=== PATIENT | female | born 1975 | race Caucasian/White ===

== ENCOUNTER 2018-01-29 11:28 | Emergency (ER) | payer OTHER ==
[2018-01-29 11:57] VITALS: BP 146/89
--- NOTE | 2018-01-29 12:28 | UC ---
Minor Trauma HPI - HPI Summary HPI Summary: Pt reports that she slipped on stair last night and fell down 13 stairs hitting chin, and left knee pain pain s/p fall. Pt has "butterflied" chin laceration and using crutch to ambulate. - History of Current Complaint Chief Complaint: UCLowerExtremity Stated Complaint: S/P FALL LEFT LEG,CHIN (YESTERDAY) Time Seen by Provider: 01/29/18 12:09 Hx Obtained From: Patient Hx Last Menstrual Period: 12/22/17 ?: No Onset/Duration: Sudden Onset, Worse Since - onset Onset Of Pain: Post Accident Severity Initially: Moderate Severity Currently: Severe Pain Intensity: 10 Mechanism Of Injury: Fall From A Standing Position Aggravating Factor(s): Movement, Weight Bearing Alleviating Factor(s): Nothing Associated Signs And Symptoms: Positive: Swelling - Risk Factors Penetrating Injury Risk Factors: Negative Compartment Syndrome Risk Factors: Pain - Allergies/Home Medications Allergies/Adverse Reactions: Allergies Allergy/AdvReac Type Severity Reaction Status Date / Time Penicillins Allergy Hives Verified 01/29/18 11:48 Home Medications: Home Medications Acetaminophen [Acetaminophen Extra Strength] 1,000 mg PO Q6H PRN 01/29/18 [ History Confirmed 01/29/18] Ibuprofen TAB* [Advil TAB*] 800 mg PO Q6H PRN 01/29/18 [History Confirmed ] PMH/Surg Hx/FS Hx/Imm Hx Previously Healthy: Yes - obese - Surgical History Surgical History: Yes Surgery Procedure, Year, and Place: TONSILS& ADNOIDS REMOVED AND TUBES IN EARS A CHILD. 2 C-SECTIONS. BILATERAL CARPAL TUNNEL. TUBAL LIGATION - Family History Known Family History: Positive: Cardiac Disease - Social History Occupation: Employed Full-time Lives: With Family Alcohol Use: Occasionally Substance Use Type: None Smoking Status (MU): Heavy Every Day Tobacco Smoker Type: Cigarettes Amount Used/How Often: 1/2- 1 ppd Length of Time of Smoking/Using Tobacco: 10 + yrs Have You Smoked in the Last Year: Yes Household Exposure Type: Cigarettes - Immunization History Most Recent Tetanus Shot: unknown Review of Systems Constitutional: Negative Skin: Bruising - chin Eyes: Negative ENT: Negative Respiratory: Negative Cardiovascular: Negative Gastrointestinal: Negative Genitourinary: Negative Motor: Decreased ROM - left knee Neurovascular: Negative Musculoskeletal: Arthralgia, Decreased ROM, Myalgia - left knee Neurological: Negative Psychological: Negative Is Patient Immunocompromised?: No All Other Systems Reviewed And Are Negative: Yes Physical Exam Triage Information Reviewed: Yes Appearance: Pain Distress, Obese Vital Signs: Initial Vital Signs Temp 97.8 F 01/29/18 11:50 Pulse 86 01/29/18 11:50 Resp 20 01/29/18 11:50 BP 146/89 01/29/18 11:50 Pulse Ox 98 01/29/18 11:50 Vital Signs Reviewed: Yes Eye Exam: Normal ENT Exam: Normal Dental Exam: Normal Neck exam: Normal Respiratory Exam: Normal Cardiovascular Exam: Normal Musculoskeletal Exam: Other Musculoskeletal: Positive: Strength Limited @ - left knee, ROM Limited @ - left knee, Other: - left knee, generalized pain unable to bend due to pain Neurological Exam: Normal Psychological Exam: Normal Skin Exam: Other - multiple laceration chin, bleeding stopped and bandage applied. Diagnostics - Radiology No standard instances Radiology Interpretation Completed By: Radiologist - IMPRESSION: OSTEOARTHRITIS. SMALL JOINT EFFUSION. NO ACUTE FINDINGS. Minor Trauma Course/Dx - Differential Dx/Diagnosis Differential Diagnosis/HQI/PQRI: Contusion(s), Fracture, Laceration(s), Sprain, Strain Provider Diagnoses: left knee sprain. chin laceration- no repair needed. Discharge - Sign-Out/Discharge Documenting (check all that apply): Patient Departure - Discharge Plan Condition: Stable Disposition: HOME Prescriptions: traMADol TAB* [Ultram*] 50 mg PO Q12H PRN #6 tab MDD 2 PRN Reason: Pain Patient Education Materials: Knee Pain (ED), R.I.C.E. Treatment (ED), Facial Laceration (ED) Referrals: Aurelio Courtney MD [Medical Doctor] - If Needed Brandee Mcknight MD [Primary Care Provider] - If Needed - Billing Disposition and Condition Condition: STABLE Disposition: Home
[2018-01-29] MEDS ORDERED: traMADol TAB* 50 MG PO ONE (12:42)
[2018-01-29] MEDS ORDERED: Ondansetron ODT TAB* 4 MG PO ONE (12:42)
--- NOTE | 2018-01-29 12:48 | RAD ---
INDICATION: Fall. Right knee pain COMPARISON: None TECHNIQUE: AP, lateral, tunnel, and sunrise views were obtained. FINDINGS: There are no acute bony findings. There is moderate patellofemoral osteoarthritis. There is mild osteoarthritis of the lateral joint space compartment. There is a small joint effusion.. IMPRESSION: OSTEOARTHRITIS. SMALL JOINT EFFUSION. NO ACUTE FINDINGS.
== END 2018-01-29 13:27 | disposition home or self-care (01) ==
LOC: UCCORT 11:28
DX: S01.81XA Laceration without foreign body of other part of head, initial encounter (principal); S83.92XA Sprain of unspecified site of left knee, initial encounter; E66.9 Obesity, unspecified; F17.210 Nicotine dependence, cigarettes, uncomplicated; Z88.0 Allergy status to penicillin; W10.9XXA Fall (on) (from) unspecified stairs and steps, initial encounter; Y92.9 Unspecified place or not applicable
CPT/HCPCS: 99213; A9270-GY; G0463